=== PATIENT | female | born 1940 | race Two or more races ===

== ENCOUNTER → 2016-06-01 | Outpatient (CLI) | payer OTHER, MEDICAID | LOC: FIMAGING 08:24 | DX: Z12.31 Encounter for screening mammogram for malignant neoplasm of breast (principal) | CPT/HCPCS: G0202 ==

== ENCOUNTER → 2017-06-02 | Outpatient (CLI) | payer OTHER, MEDICAID | LOC: FIMAGING 08:15 | PROVIDERS: ATTEND Internal Medicine | DX: Z12.31 Encounter for screening mammogram for malignant neoplasm of breast (principal) ==

== ENCOUNTER → 2017-06-12 | Outpatient (CLI) | payer OTHER, MEDICAID | LOC: FIMAGING 09:04 | PROVIDERS: ATTEND Internal Medicine | DX: R92.0 Mammographic microcalcification found on diagnostic imaging of breast (principal) ==

== ENCOUNTER → 2018-01-08 | Outpatient (CLI) | payer MEDICAID, OTHER | LOC: FIMAGING 08:54 | PROVIDERS: ATTEND Internal Medicine | DX: R92.0 Mammographic microcalcification found on diagnostic imaging of breast (principal) ==

== ENCOUNTER → 2018-06-13 | Outpatient (CLI) | payer OTHER | LOC: FIMAGING 15:24 | PROVIDERS: ATTEND Internal Medicine | DX: Z12.31 Encounter for screening mammogram for malignant neoplasm of breast (principal) ==

== ENCOUNTER 2018-08-21 09:08 | Inpatient (IN) | payer OTHER | END 2018-08-23 20:20 | disposition home or self-care (01) | LOC: F3E 09:08 ==